=== PATIENT | female | born 1980 | race Caucasian/White ===

== ENCOUNTER 2017-09-30 18:30 | Emergency (ER) | payer OTHER ==
[2017-09-30] MEDS ORDERED: Aspirin Low Dose CHEW TAB* 81 MG PO ONE (19:41)
[2017-09-30] MEDS ORDERED: Ibuprofen TAB* 400 MG PO ONE (19:42)
[2017-09-30 19:49] LABS: Hematocrit 43 % (35-47); Hemoglobin 14.8 g/dl (12.0-16.0); Mean Corpuscular HGB Conc 35 g/dl (31-36); Mean Corpuscular Hemoglobin 29 pg (27-31); Mean Corpuscular Volume 84 fL (80-97); Mean Platelet Volume 9 um3 (7.4-10.4); Red Blood Count 5.04 10^6/ul (4.0-5.4); Red Cell Distribution Width 13 % (10.5-15); White Blood Count 10.8 10^3/ul (3.5-10.8)
--- NOTE | 2017-09-30 20:03 | RAD ---
HISTORY: Chest pain COMPARISONS: October 30, 2007 VIEWS: 1: frontal portable view of the chest at 7:48 PM FINDINGS: LINES AND TUBES: None. CARDIOMEDIASTINAL SILHOUETTE: The cardiomediastinal silhouette is normal for portable technique. PLEURA: The costophrenic angles are sharp. No pleural abnormalities are noted. LUNG PARENCHYMA: The lungs are clear. ABDOMEN: The upper abdomen is clear. There is no subphrenic gas. BONES AND SOFT TISSUES: No bone or soft tissue abnormalities are noted. IMPRESSION: NO ACTIVE CARDIOPULMONARY DISEASE.
[2017-09-30 20:09] LABS: ALT 10 U/L (7-52); AST 15 U/L (13-39); Albumin 4.4 g/dL (3.2-5.2); Alkaline Phosphatase 71 U/L (34-104); Anion Gap 8 mmol/L (2-11); BUN/Creatinine Ratio 23.5 (8-20); Blood Urea Nitrogen 19 mg/dL (6-24); CO2 Carbon Dioxide 22 mmol/L (22-32); Calcium 10.6 mg/dL (8.6-10.3); Chloride 105 mmol/L (101-111); EGFR African American 102.9 (>60); Globulin 3.2 g/dL (2-4); Glucose 115 mg/dL (70-100); Potassium 3.8 mmol/L (3.5-5.0); Sodium 135 mmol/L (133-145); Total Protein 7.6 g/dL (6.4-8.9)
[2017-09-30 20:11] LABS: Troponin I 0.01 ng/mL (<0.04)
[2017-09-30] MEDS: Nitroglycerin 2% OINT* 1 GM PAK TOPICAL ONE ×2 (20:11→23:46)
[2017-09-30 21:22] LABS: Creatine Kinase 67 U/L (10-223)
[2017-09-30] MEDS ORDERED: Cyclobenzaprine TAB* 10 MG PO ONE (21:41)
[2017-09-30 23:46] VITALS: BP 127/72
--- NOTE | 2017-10-01 01:38 | ED ---
Shreya Gandara Rebecca, scribed for Tony Galindo on 09/30/17 at 1931 . HPI Chest Pain - HPI Summary HPI Summary: Pt is a 36 y/o F who presents to ED c/o CP. Pain began this afternoon, shortly after getting up and has been constant since onset, waxing and waning in intensity. Pt reports the pain is located in the midsternum and started as mild and has progressively worsened. It is now severe, ranked 9/10 and characterized as pressure. Sx aggravated by moving the neck, alleviated by standing up. Denies SOB, fever, N/V, dizziness and cough. No prior similar episodes. Is not on oral contraceptives. - History of Current Complaint Chief Complaint: EDChestPainROMI Time Seen by Provider: 09/30/17 19:19 Hx Obtained From: Patient Onset/Duration: Started Hours Ago, Still Present Timing: Constant Initial Severity: Mild Current Severity: Severe Pain Intensity: 9 Pain Scale Used: 0-10 Numeric Chest Pain Location: Mid Sternal Character: Pressure/Squeezing Aggravating Factor(s): Other: - Moving the neck Alleviating Factor(s): Other: - Standing up Associated Signs and Symptoms: Positive: Negative. Negative: Dizziness, Shortness of Breath, Fever, Nausea, Cough, Vomiting - Allergy/Home Medications Allergies/Adverse Reactions: Allergies Allergy/AdvReac Type Severity Reaction Status Date / Time No Known Allergies Allergy Verified 09/30/17 19:21 PMH/Surg Hx/FS Hx/Imm Hx Endocrine/Hematology History: Reports: Hx Thyroid Disease Cardiovascular History: Denies: Hx Coronary Artery Disease Infectious Disease History: No Infectious Disease History: Denies: Traveled Outside the [place] in Last 30 Days - Family History Known Family History: Positive: Other - Thyroid disease (mother) - Social History Alcohol Use: Rare Substance Use Type: Reports: None Smoking Status (MU): Never Smoked Tobacco Review of Systems Negative: Fever Positive: Chest Pain Negative: Shortness Of Breath, Cough Negative: Vomiting, Nausea Neurological: Other - NEGATIVE: Dizziness All Other Systems Reviewed And Are Negative: Yes Physical Exam - Summary Physical Exam Summary: Appearance: Well appearing, no pain distress Skin: warm, dry, reflects adequate perfusion Head/face: normal Eyes: EOMI, COOPER ENT: normal Neck: supple, nontender Respiratory: CTA, breath sounds present Cardiovascular: RRR, pulses symmetrical, tenderness over the chest Abdomen: nontender, soft Bowel: present Musculoskeletal: normal, strength/ROM intact Neuro: normal, sensory motor intact, A&Ox3 Triage Information Reviewed: Yes Vital Signs On Initial Exam: Initial Vitals Temp Pulse Resp BP Pulse Ox 98.1 F 104 20 150/94 100 09/30/17 18:32 09/30/17 18:32 09/30/17 18:32 09/30/17 18:32 09/30/17 18:32 Vital Signs Reviewed: Yes - [place] Coma Scale Coma Scale Total: 15 Diagnostics - Vital Signs Vital Signs Temp Pulse Resp BP Pulse Ox 09/30/17 18:32 98.1 F 104 20 150/94 100 - Laboratory Lab Results: Lab Results 09/30/17 09/30/17 09/30/17 Range/Units 19:40 19:40 19:40 WBC 10.8 (3.5-10.8) 10^3/ul RBC 5.04 (4.0-5.4) 10^6/ul Hgb 14.8 (12.0-16.0) g/dl Hct 43 (35-47) % MCV 84 (80-97) fL MCH 29 (27-31) pg MCHC 35 (31-36) g/dl RDW 13 (10.5-15) % Plt Count 223 (150-450) 10^3/ul MPV 9 (7.4-10.4) um3 Neut % (Auto) 60.0 (38-83) % Lymph % (Auto) 33.0 (25-47) % [place] % (Auto) 5.0 (1-9) % Eos % (Auto) 1.1 (0-6) % Baso % (Auto) 0.9 (0-2) % Absolute Neuts (auto) 6.5 (1.5-7.7) 10^3/ul Absolute Lymphs (auto) 3.6 (1.0-4.8) 10^3/ul Absolute Monos (auto) 0.5 (0-0.8) 10^3/ul Absolute Eos (auto) 0.1 (0-0.6) 10^3/ul Absolute Basos (auto) 0.1 (0-0.2) 10^3/ul Absolute Nucleated RBC 0.01 10^3/ul Nucleated RBC % 0.1 INR (Anticoag Therapy) 0.85 L (0.89-1.11) APTT 29.5 (26.0-36.3) seconds D-Dimer, Quantitative 226 (Less Than 230) ng/mL Sodium (133-145) mmol/L Potassium (3.5-5.0) mmol/L Chloride (101-111) mmol/L Carbon Dioxide (22-32) mmol/L Anion Gap (2-11) mmol/L BUN (6-24) mg/dL Creatinine (0.51-0.95) mg/dL Est GFR ( Amer) (>60) Est GFR (Non-Af Amer) (>60) BUN/Creatinine Ratio (8-20) Glucose (70-100) mg/dL Lactic Acid (0.5-2.0) mmol/L Calcium (8.6-10.3) mg/dL Magnesium (1.9-2.7) mg/dL Total Bilirubin (0.2-1.0) mg/dL AST (13-39) U/L ALT (7-52) U/L Alkaline Phosphatase (34-104) U/L Total Creatine Kinase (10-223) U/L Troponin I (<0.04) ng/mL B-Natriuretic Peptide 27 ( - 100) pg/mL Total Protein (6.4-8.9) g/dL Albumin (3.2-5.2) g/dL Globulin (2-4) g/dL Albumin/Globulin Ratio (1-3) Beta HCG, Quant mIU/mL 09/30/17 09/30/17 09/30/17 Range/Units 19:40 19:40 22:35 WBC (3.5-10.8) 10^3/ul RBC (4.0-5.4) 10^6/ul Hgb (12.0-16.0) g/dl Hct (35-47) % MCV (80-97) fL MCH (27-31) pg MCHC (31-36) g/dl RDW (10.5-15) % Plt Count (150-450) 10^3/ul MPV (7.4-10.4) um3 Neut % (Auto) (38-83) % Lymph % (Auto) (25-47) % [place] % (Auto) (1-9) % Eos % (Auto) (0-6) % Baso % (Auto) (0-2) % Absolute Neuts (auto) (1.5-7.7) 10^3/ul Absolute Lymphs (auto) (1.0-4.8) 10^3/ul Absolute Monos (auto) (0-0.8) 10^3/ul Absolute Eos (auto) (0-0.6) 10^3/ul Absolute Basos (auto) (0-0.2) 10^3/ul Absolute Nucleated RBC 10^3/ul Nucleated RBC % INR (Anticoag Therapy) (0.89-1.11) APTT (26.0-36.3) seconds D-Dimer, Quantitative (Less Than 230) ng/mL Sodium 135 (133-145) mmol/L Potassium 3.8 (3.5-5.0) mmol/L Chloride 105 (101-111) mmol/L Carbon Dioxide 22 (22-32) mmol/L Anion Gap 8 (2-11) mmol/L BUN 19 (6-24) mg/dL Creatinine 0.81 (0.51-0.95) mg/dL Est GFR ( Amer) 102.9 (>60) Est GFR (Non-Af Amer) 80.0 (>60) BUN/Creatinine Ratio 23.5 H (8-20) Glucose 115 H (70-100) mg/dL Lactic Acid 1.0 (0.5-2.0) mmol/L Calcium 10.6 H (8.6-10.3) mg/dL Magnesium 2.0 (1.9-2.7) mg/dL Total Bilirubin 0.90 (0.2-1.0) mg/dL AST 15 (13-39) U/L ALT 10 (7-52) U/L Alkaline Phosphatase 71 (34-104) U/L Total Creatine Kinase 67 (10-223) U/L Troponin I 0.01 0.03 (<0.04) ng/mL B-Natriuretic Peptide ( - 100) pg/mL Total Protein 7.6 (6.4-8.9) g/dL Albumin 4.4 (3.2-5.2) g/dL Globulin 3.2 (2-4) g/dL Albumin/Globulin Ratio 1.4 (1-3) Beta HCG, Quant < 0.60 mIU/mL Result Diagrams: 09/30/17 19:40 09/30/17 19:40 Lab Statement: Any lab studies that have been ordered have been reviewed, and results considered in the medical decision making process. - Radiology CXR Xray Interpretation: No Acute Changes - NO ACTIVE CARDIOPULONARY DISEASE. ED physician reviewed radiology report and agrees. Radiology Interpretation Completed By: Radiologist - EKG 192 Cardiac Rate: NL - 69 bpm EKG Rhythm: Sinus Rhythm EKG Interpretation: No acute changes Re-Evaluation - Re-Evaluation First Eval Re-Evaluation Time: 21:40 Change: Unchanged Comment: Patient contiues to be in pain. Second Eval Re-Evaluation Time: 23:27 Change: Improved - Patient is no longer in pain and wants to go home. Follow up as an outpatient. Chest Pain Course/Dx - Course Assessment/Plan: Pt is a 36 y/o F who presents to ED c/o CP. Pain began this afternoon, shortly after getting up and has been constant since onset, waxing and waning in intensity. Pt reports the pain is located in the midsternum and started as mild and has progressively worsened. It is now severe, ranked 9/10 and characterized as pressure. Sx aggravated by moving the neck. Denies SOB, fever, N/V, dizziness and cough. No prior similar episodes. Is not on oral contraceptives. CXR reveals no acute findings. EKG is sinus rhythm with no acute changes. Troponin of 0.01 with a repeat of 0.03. In the ED course, pt received NTG, ASA, Flexeril and Motrin which improved sx. Pt will be D/C to home with Dx of atypical CP and musculoskeletal CP with Rx for Flexeril and Voltaren with a follow up with her PCP for an outpatient stress test. She understands and agrees. Elevated BP noted. Pt medications reviewed. - Chest Pain Differential Diagnosis/HQI/PQRI: Acute [place], Angina, CHF, Chest Wall, Lower Respiratory Infection, Pulmonary Embolism - Diagnoses Provider Diagnoses: Atypical chest pain, Musculoskeletal chest pain Discharge - Discharge Plan Condition: Stable Disposition: HOME Prescriptions: Cyclobenzaprine TAB* [Flexeril 10 MG TAB*] 10 mg PO TID PRN #15 tab MDD 3 PRN Reason: Pain Diclofenac Sodium EC TAB* [Voltaren EC TAB*] 50 mg PO TID PRN #20 tab.ec MDD 3 PRN Reason: Pain Patient Education Materials: Chest Pain (ED), Musculoskeletal Pain (ED) Referrals: Megha Benavidez MD [Primary Care Provider] - 3 Days (Follow up with primary care physician for a stress test as an outpatient. ) Additional Instructions: Return to ED for any returning or additional symptoms. The documentation as recorded by the Shreya kaminski Rebecca accurately reflects the service I personally performed and the decisions made by Josie shannon Emmanuel.
== END 2017-09-30 23:47 | disposition home or self-care (01) ==
LOC: ED 18:30
DX: R07.89 Other chest pain (principal); E07.9 Disorder of thyroid, unspecified
CPT/HCPCS: 36415; 71010; 80053; 82550; 83605; 83735; 83880; 84484; 84702; 85025; 85379; 85610; 85730; 93005; 99283; A9270-GY